=== PATIENT | male | born 1965 | race Two or more races ===

== ENCOUNTER 2020-08-01 12:25 | Outpatient (CLI) | payer OTHER | END 2020-08-01 12:32 | disposition home or self-care (01) | LOC: RAD 12:25 | DX: M25.761 Osteophyte, right knee (principal); M25.561 Pain in right knee ==

== ENCOUNTER 2023-11-27 07:11 | Outpatient (CLI) | payer OTHER | END 2023-11-27 07:18 | disposition home or self-care (01) | LOC: RAD 07:11 | PROVIDERS: ATTEND Family Medicine | DX: K76.0 Fatty (change of) liver, not elsewhere classified (principal); N20.0 Calculus of kidney; R22.0 Localized swelling, mass and lump, head ==

== ENCOUNTER 2024-06-20 11:54 | Emergency (ER) | payer OTHER ==
[~2024-06-20] VITALS: Ht 175.3 cm; Wt 86.2 kg
[~2024-06-20 11:54] MED LIST: LIPITOR40 M1 PO; LISINOPRIL5 MG PO
[2024-06-20] MEDS ORDERED: TEARS LUBRICANT15 ML OP (14:23)
== END 2024-06-20 14:30 | disposition home or self-care (01) ==
LOC: ER 11:56
DX: H11.31 Conjunctival hemorrhage, right eye (principal); I10 Essential (primary) hypertension; Z91.013 Allergy to seafood

== ENCOUNTER 2024-07-21 14:30 | Outpatient (CLI) | payer OTHER ==
[~2024-07-21 14:30] MED LIST changes: +TEARS LUBRICANT15 ML OP
== END 2024-07-21 14:46 | disposition home or self-care (01) ==
LOC: MRI 14:30
DX: M51.362 Other intervertebral disc degeneration, lumbar region with discogenic back pain and lower extremity pain (principal)
CPT/HCPCS: 72148

== ENCOUNTER 2024-10-20 08:00 | Inpatient (IN) | payer OTHER ==
[~2024-10-20] VITALS: Ht 175.3 cm; Wt 86.2 kg
[2024-10-20 09:40] LABS: URINE APPEARANCE Clear; URINE BILIRRUBIN Negative (NEGATIVE); URINE BLOOD Negative; URINE COLOR Yellow; URINE GLUCOSE Negative (NEGATIVE); URINE KETONE Negative (NEGATIVE); URINE LEUKOCYTE Negative; URINE NITRATE Negative; URINE PROTEIN Negative (NEGATIVE)
[2024-10-20 09:44] LABS: URINE EPITHELIAL CELLS 1.7 uL (0.0-38.8); URINE RBC 4.8 uL (0.0-20.8)
[2024-10-20 09:56] LABS: URINE BACTERIA 3.6 uL (0.0-1933); URINE WBC 1.4 uL (0.0-23.2)
[2024-10-20 10:05] LABS: INR 1.01; PARTIAL THROMBOPLASTIN TIME 28.6 SECONDS (22.0-34.0)
[2024-10-20] MEDS ORDERED: MONTELUKAS 10MG (10:09)
[2024-10-20] MEDS ORDERED: B12 (10:09)
[2024-10-20] MEDS ORDERED: TIMOLOL5 ML (10:10)
[2024-10-20] MEDS ORDERED: BRIMONIDINE (10:10)
[2024-10-20] MEDS ORDERED: EPIPEN (10:11)
[2024-10-20] MEDS ORDERED: LATANOPROST (10:11)
[2024-10-20 10:17] VITALS: BP 142/92
[2024-10-20 10:26] LABS: HEMATOCRIT 43.2 % (39.0-48.0); HEMOGLOBIN 15.3 g/dL (13-16.00); MEAN CELL VOLUME 97.6 fL (80.0-100.00); MEAN CORPUSCULAR HEMOGLOBIN 34.6 pg (27.00-32.0); MEAN CORPUSCULAR HGB CONC 35.4 g/dl (32.0-36.0); PLATELET COUNT 243 K/uL (150-450); RED BLOOD COUNT 4.42 M/uL (4.00-6.00); RED CELL DISTRIBUTION WIDTH 12.4 % (11.5-14.5)
[2024-10-20 10:36] LABS: ALBUMIN 4.2 gm/dL (3.4-5.0); BILIRUBIN TOTAL 2.53 mg/dL (0.3-1.2); CALCIUM 9.7 mg/dL (8.5-10.1); CHOL HDL RATIO 2.9 (0-5.0); CREATININE SERUM 0.82 mg/dL (0.70-1.30); GFR 96.16; GLOBULINA 3.8 G/DL (2.4-3.5); POTASSIUM 4.5 mEq/L (3.5-5.1)
[2024-10-20 15:24] LABS: RH POSITIVE
[2024-11-01] MEDS ORDERED: LIDOCAINE HCL 1%/EPINEPHRINE 20ML VIAL IJ ONE (14:35)
[2024-11-01] MEDS ORDERED: TRANEXAMIC ACID 100MG/1ML (1000MG) AMPUL IV ONE ×2 (14:35→17:45)
[2024-11-01] MEDS ORDERED: BUPIVACAINE HCL/MPF 0.5% 30ML VIAL ONE (14:35)
[2024-11-01] MEDS ORDERED: KETOROLAC TROMETHAMINE 60 MG VIAL IM ONE (14:35)
[2024-11-01] MEDS ORDERED: CEFAZOLIN SODIUM 1,000 MG VIAL ONE ×2 (14:36→17:51)
[2024-11-01] MEDS ORDERED: ONDANSETRON HCL 2 MG/ML VIAL IV PRN (17:00)
[2024-11-01] MEDS ORDERED: SODIUM CHLORIDE 0.45 % 1,000 ML IV SCH (17:00)
[2024-11-01] MEDS ORDERED: CEFAZOLIN SODIUM 1,000 MG VIAL IV SCH (17:00)
[2024-11-01] MEDS ORDERED: GABAPENTIN 300 MG CAPSULE PO SCH (17:00)
[2024-11-01] MEDS ORDERED: OxyCODONE HCL 5 MG TABLET (ROXICODONE) PO PRN (17:00)
[2024-11-01] MEDS ORDERED: MORPHINE SULFATE 4 MG/ML CARTRIDGE IV PRN (17:00)
[2024-11-01] MEDS ORDERED: MORPHINE SULFATE 4 MG/ML VIAL IV ONE ×6 (17:45→21:10)
[2024-11-01] MEDS ORDERED: ACETAMINOPHEN 500 MG GEL..CAP PO SCH (18:00)
[2024-11-01] MEDS ORDERED: ONDANSETRON HCL 2 MG/ML VIAL IV ONE (22:00)
[2024-11-01] MEDS ORDERED: MEPERIDINE HCL 25 MG/ML AMPUL IV ONE (22:00)
[2024-11-01] MEDS ORDERED: ONDANSETRON HCL 2 MG/ML VIAL ONE (22:01)
[2024-11-02] MEDS ORDERED: ACETAMINOPHEN 500 MG GEL..CAP PO ONE (00:37)
[2024-11-02] MEDS ORDERED: CEFAZOLIN SODIUM 1,000 MG VIAL ONE (00:37)
[2024-11-02] MEDS ORDERED: GABAPENTIN 300 MG CAPSULE PO ONE (00:37)
[2024-11-02 01:44] VITALS: BP 132/86; O2SAT 99
[2024-11-02 06:30] LABS: HEMATOCRIT 33.7 % (39.0-48.0); HEMOGLOBIN 12.2 g/dL (13-16.00); MEAN CORPUSCULAR HEMOGLOBIN 35.9 pg (27.00-32.0); MEAN CORPUSCULAR HGB CONC 36.2 g/dl (32.0-36.0); PLATELET COUNT 185 K/uL (150-450); RED BLOOD COUNT 3.41 M/uL (4.00-6.00); RED CELL DISTRIBUTION WIDTH 12.1 % (11.5-14.5)
[2024-11-02 08:00] VITALS: BP 140/85; O2SAT 97
[2024-11-02] MEDS ORDERED: ELIQUIS2.5 MG PO (08:23)
[2024-11-02] MEDS ORDERED: DUI500 PO (08:23)
[2024-11-02] MEDS ORDERED: PERCOCET 5-3251 EACH PO (08:23)
[2024-11-02] MEDS ORDERED: SENNOSIDES 1 TAB TABLET PO SCH (09:00)
[2024-11-02] MEDS ORDERED: APIXABAN 2.5 MG TABLET PO SCH (09:00)
[2024-11-02] MEDS ORDERED: LISINOPRIL 5 MG TABLET PO SCH (09:00)
[2024-11-02] MEDS ORDERED: VOLTAREN ARTHRI20 GM TP (15:07)
[2024-11-02] MEDS ORDERED: Cyanocobalamin/Mecobalamin 1 TAB.SL SL NR (15:20)
[2024-11-02] MEDS ORDERED: IRON FUM,PS/FOLIC ACID/VITC/B3 1 CAP CAPSULE PO NR (15:20)
[2024-11-02 16:00] VITALS: BP 177/89; O2SAT 95
[2024-11-02] MEDS ORDERED: SOD FERRIC GLUC COMPLX/SUCROSE 62.5 MG/5 ML AMPUL IV SCH (17:00)
[2024-11-02 20:00] VITALS: BP 123/71
[2024-11-02 20:42] LABS: FERRITIN 768.6 NG/ML (26-388)
[2024-11-03 00:54] VITALS: BP 123/70; O2SAT 95
[2024-11-03 08:00] VITALS: BP 152/87; O2SAT 97
[2024-11-03 08:36] LABS: HEMATOCRIT 32.2 % (39.0-48.0); HEMOGLOBIN 11.4 g/dL (13-16.00); MEAN CELL VOLUME 99.2 fL (80.0-100.00); MEAN CORPUSCULAR HEMOGLOBIN 34.9 pg (27.00-32.0); MEAN CORPUSCULAR HGB CONC 35.2 g/dl (32.0-36.0); PLATELET COUNT 174 K/uL (150-450); RED BLOOD COUNT 3.25 M/uL (4.00-6.00)
[2024-11-03] MEDS ORDERED: Cyanocobalamin/Mecobalamin 1 TAB.SL SL SCH (09:00)
[2024-11-03] MEDS ORDERED: IRON FUM,PS/FOLIC ACID/VITC/B3 1 CAP CAPSULE PO SCH (09:00)
[2024-11-03] MEDS ORDERED: VITAMIN B COMPLEX 1 EACH PO SCH (09:00)
[2024-11-04 16:05] LABS: hgb a 96.1 % (96.4-98.8); hgb a2 2.4 % (1.8-3.2); hgb f 1.5 % (0.0-2.0); hgb s 0 % (0.0)
== END 2024-11-03 21:25 | disposition home or self-care (01) | DRG 470 ==
LOC: O/R 11-01 07:05 → SURH 11-01 07:05
PROVIDERS: Internal Medicine Hematology & Oncology; ADMIT Orthopaedic Surgery; ATTEND Orthopaedic Surgery
PROC: 0SRC0J9 Replacement of Right Knee Joint with Synthetic Substitute, Cemented, Open Approach (ICD-10-PCS; principal; 2024-11-01 10:00)
DX: M17.11 Unilateral primary osteoarthritis, right knee (principal); D62 Acute posthemorrhagic anemia; M22.11 Recurrent subluxation of patella, right knee; I10 Essential (primary) hypertension; E78.5 Hyperlipidemia, unspecified; G47.33 Obstructive sleep apnea (adult) (pediatric)